=== PATIENT | female | born 1930 | race Caucasian/White ===

== ENCOUNTER → 2018-03-19 | Outpatient (CLI) | payer OTHER, BC | LOC: FCPNEURO 21:30 | PROVIDERS: ATTEND Psychiatry & Neurology Sleep Medicine | DX: G47.34 Idiopathic sleep related nonobstructive alveolar hypoventilation (principal); G47.61 Periodic limb movement disorder ==

== ENCOUNTER → 2018-09-20 | Outpatient (CLI) | payer BC, OTHER | LOC: BMCIMAGING 14:27 | PROVIDERS: ATTEND Internal Medicine Rheumatology | DX: M81.0 Age-related osteoporosis without current pathological fracture (principal); M48.56XA Collapsed vertebra, not elsewhere classified, lumbar region, initial encounter for fracture; Z78.0 Asymptomatic menopausal state; Z79.83 Long term (current) use of bisphosphonates; Z79.52 Long term (current) use of systemic steroids ==

== ENCOUNTER 2018-10-28 05:15 | Day surgery (SDC) | payer OTHER ==
--- NOTE | 2018-10-27 16:13 | GHP ---
[f rep st] PREOP HISTORY AND PHYSICAL DATE OF ADMISSION: 10/28/2018 DATE OF SURGERY: 10/28/2018. CHIEF COMPLAINT: Umbilical hernia. HISTORY OF PRESENT ILLNESS: An 88-year-old woman with an umbilical hernia for several years. It was not bothersome to her and was not changing in size until about 1 week ago, when the hernia became si gnificantly larger. She describes it to be the size of a doorknob. It was extremely painful and tur zhang red. She luckily had a physician who lives in her neighborhood come over, who was able to fully reduce this incarcerated umbilical hernia and applied a pressure dressing of a yarn ball followed by an abdominal binder. Since the time of the incarceration, she does not have any recurrent symptoms o f pain, swelling, redness. She does not have any change in her bowel movement. She continues to pas s gas. No fevers or chills. Regular appetite. No nausea or vomiting. PAST MEDICAL HISTORY: Asthma, lifelong; polymyalgia rheumatica; nocturnal hypoxia requiring 2 L oxyg en at night. PAST SURGICAL HISTORY: Cardiac ablation for arrhythmia. Otherwise, none. ALLERGIES: No known drug allergies. FAMILY MEDICAL HISTORY: No significant family medical. SOCIAL HISTORY: She moved to [place] approximately 1 year ago to be near family after her 's . She denies tobacco, alcohol, or recreational drug use. She is retired. REVIEW OF SYSTEMS: A 10-point review of systems is negative aside from the HPI. PHYSICAL EXAMINATION: GENERAL: A well-developed, well-nourished, elderly woman in no acute distress . HEENT: Normocephalic, atraumatic. No hearing deficits. Pupils equal and round. No scleral icte besise. Mucous membranes are moist. NECK: Trachea midline. RESPIRATORY: No increased work of breath ing. Clear to auscultation bilaterally. CARDIOVASCULAR: Regular rate and rhythm. No peripheral ed taty. SKIN: Warm and dry. No rash. No surgical incisions. ABDOMEN: Bowel sounds present. ABDOME N: Soft, nondistended, nontender to palpation. She does have a quite sizable umbilical hernia, appr oximately 3 cm opening at the fascia. At this moment, the hernia is fully reducible without overlyin g skin changes. PSYCH: Mood and affect normal. NEURO: Grossly intact. IMPRESSION AND PLAN: This is an 88-year-old woman with recently incarcerated umbilical hernia, curre ntly reducible. I have recommended urgent open umbilical hernia repair with or without mesh. We dis cussed risks of surgery including, but not limited to heart attack, stroke, blood clots or . We discussed risk of infection, bleeding, damage to surrounding structures, need for additional procedu res or recurrence. She understands the risks and would like to proceed. She is currently on low dos e of prednisone of an extended taper for polymyalgia rheumatica. She does not take any blood thinner s. She has no antibiotic allergies. Anticipate this to be an outpatient procedure. The patient marifer l be additionally evaluated by Dr. Nisha Musa. /[id number]/MODL
[2018-10-28] MEDS ORDERED: ceFAZolin 2 GM/DEXTROSE 100 ML IV ONE (05:57)
[2018-10-28] MEDS ORDERED: LR 1,000 ML IV ONE (06:02)
[2018-10-28] MEDS ORDERED: BUPIVACAINE 0.5% 30 ML SDV ONE (06:40)
[2018-10-28 06:48] LABS: PLATELET COUNT 290 10^3/uL (150-400)
--- NOTE | 2018-10-28 07:03 | PDHPUP ---
History & Physical Update H&P update statement: This history and physical update is based on an assessment of the patient which was completed after admission or registration (within 24 hours), but prior to the surgery/procedure. H&P update: H&P reviewed & patient examined, no change in patient's condition since H&P completed
[2018-10-28] MEDS ORDERED: MIDAZOLAM 2 MG/2 ML VIAL IVP ONE (07:06)
--- NOTE | 2018-10-28 07:07 | PDANEPAE ---
ANE Past Medical History - Cardiovascular History Hx Hypertension: No Hx Arrhythmias: Yes Hx Chest Pain: No Hx Coronary Artery / Peripheral Vascular Disease: No Hx CHF / Valvular Disease: No Hx Palpitations: No Cardiovascular History Comment: Afib with ablation 15yrs ago. intermittent palpitations - Pulmonary History Hx COPD: No Hx Asthma/Reactive Airway Disease: Yes Hx Recent Upper Respiratory Infection: Yes Hx Oxygen in Use at Home: Yes O2 in Use at Home (L/minute): 2.L at noc Hx Sleep Apnea: No Sleep Apnea Screening Result - Last Documented: Negative Pulmonary History Comment: nocturnal hypoxia - Neurologic History Hx Cerebrovascular Accident: No Hx Seizures: No Hx Dementia: No - Endocrine History Hx Diabetes: No - Renal History Hx Renal Disorders: No - Liver History Hx Hepatic Disorders: No - Neurological & Psychiatric Hx Hx Neurological and Psychiatric Disorders: Yes Neurological / Psychiatric History Comment: carpal tunnel. depression/anxiety - Cancer History Hx Cancer: No - Congenital Disorder History Hx Congenital Disorders: No - GI History Hx Gastrointestinal Disorders: Yes Gastrointestinal History Comment: hiatel hernia - Other Health History Other Health History: [place] DEE-NI'. very sensitive skin. bruises easily - Chronic Pain History Chronic Pain: Yes (generilesed) - Surgical History Prior Surgeries: none in last 5 yrs. bilat cataract surgery ANE Review of Systems Review of Systems: - Exercise capacity METS (RN): 3 METS ANE Patient History - Allergies Allergies/Adverse Reactions: No Known Allergies Allergy (Verified 10/27/18 15:34) - Home Medications Home Medications: Advair 500/50 (*) 10/27/18 [Last Taken 10/27/18 09:00] Albuterol 10/27/18 [Last Taken 10/24/18] Calcium 10/27/18 [Last Taken 10/27/18 09:00] Cholecalciferol (Vitamin D3) 10/27/18 [Last Taken 10/27/18 09:00] Claritin 10/27/18 [Last Taken 10/28/18 05:00] Fluoxetine HCl 10/27/18 [Last Taken 10/28/18 05:00] Fluticasone Nasal 10/27/18 [Last Taken Unknown] Prednisone 10/27/18 [Last Taken 10/28/18 05:00] Proair Hfa 10/27/18 [Last Taken 10/25/18] Singulair 10/27/18 [Last Taken 10/28/18 05:00] Spiriva Inhaler (RX) 10/27/18 [Last Taken Unknown] Spironolactone 10/27/18 [Last Taken 10/27/18 09:00] Temazepam 10/27/18 [Last Taken 10/27/18 22:00] - NPO status NPO Since - Liquids (Date): 10/27/18 NPO Since - Liquids (Time): 19:30 NPO Since - Solids (Date): 10/27/18 NPO Since - Solids (Time): 19:30 - Smoking Hx Smoking Status: Former smoker - Family Anes Hx Family Hx Anesthesia Complications: none ANE Labs/Vital Signs - Labs Result Diagrams: 10/28/18 06:30 - Vital Signs Blood Pressure: 139/73 Heart Rate: 79 Respiratory Rate: 21 O2 Sat (%): 92 Height: 149.86 cm Weight: 58.513 kg ANE Physical Exam - Airway Neck exam: FROM Mallampati Score: Class 2 Mouth exam: normal dental/mouth exam - Pulmonary Pulmonary: no respiratory distress - Cardiovascular Cardiovascular: regular rate and rhythym - ASA Status ASA Status: II ANE Anesthesia Plan Anesthesia Plan: general endotracheal anesthesia, GA w LMA
[2018-10-28] MEDS ORDERED: fentaNYL 100 MCG/2 ML INJ ONE (07:10)
[2018-10-28] MEDS ORDERED: PROPOFOL 200 MG/20 ML VIAL ONE (07:10)
[2018-10-28] MEDS ORDERED: DEXAMETHASONE 4 MG/ML VIAL ONE (07:10)
[2018-10-28] MEDS ORDERED: ONDANSETRON 4 MG/2 ML VIAL ONE (07:11)
[2018-10-28] MEDS ORDERED: LIDOCAINE 2% 100 MG/5 ML SYR ONE (07:11)
[2018-10-28] MEDS ORDERED: ONDANSETRON 4 MG/2 ML VIAL IVP PRN (08:02)
[2018-10-28] MEDS ORDERED: ALBUTEROL 3 ML DEYVIAL IH PRN (08:02)
[2018-10-28] MEDS ORDERED: HYDROCODONE/APAP 5/325 TAB PO PRN (08:02)
[2018-10-28] MEDS ORDERED: fentaNYL 100 MCG/2 ML INJ IVP PRN (08:02)
[2018-10-28] MEDS ORDERED: ACETAMINOPHEN 500 MG TAB PO PRN (08:02)
[2018-10-28] MEDS ORDERED: NALOXONE HCL 0.4 MG/ML INJ IVP PRN (08:02)
--- NOTE | 2018-10-28 08:24 | POSTOPPROG ---
Post Op Note Date of Operation: 10/28/18 Surgeon: Nisha Musa Anesthesiologist: Shira Anesthesia: LMA Pre-op Diagnosis: umbilical hernia Post-op Diagnosis: umbilical hernia Indication: incarceration of umbilical hernia Procedure: umbilical hernia repair with mesh Findings: incarcerated omentum Inf/Abcess present in the surg proc area at time of surgery?: No Depth: Deep Incisional (Fascial) EBL: Minimal Complications: none Clean Closure Performed: N/A
--- NOTE | 2018-10-28 08:25 | POSTANESTH ---
Post Anesthetic Evaluation Cardiovascular Status: Similar to Pre-Op Cond Respiratory Status: Similar to Pre-op Cond. Level of Consciousness/Mental Status: Mildly Sleepy, Arousable Pain Control: Adequate, Prn Tx Ordered Nausea/Vomiting Control: Adequate, Prn Tx Ordered Complications Possibly Related to Anesthesia: None Noted
--- NOTE | 2018-10-28 08:45 | GOP ---
[f rep st] OPERATIVE REPORT DATE OF OPERATION: 10/28/2018 SURGEON: Nisha Musa MD ANESTHESIOLOGIST: Jaswinder Silva MD PREOPERATIVE DIAGNOSIS: Umbilical hernia. POSTOPERATIVE DIAGNOSIS: Umbilical hernia. PROCEDURE PERFORMED: Umbilical hernia repair with mesh. FINDINGS: Incarcerated omentum. SPECIMENS: None. INDICATIONS: Anabell Vital is an 88-year-old woman who has had a known longstanding umbilical hernia. It was not bothersome until recently. A large amount protruded and became extremely painful. It w as able to be reduced almost all the way in the office, and a pressure dressing was applied. She pre sents for repair. DESCRIPTION OF PROCEDURE: Patient was brought into the operating room, placed supine on the table. General anesthesia was administered. Her abdomen was prepped and draped in the usual sterile fashion . I infiltrated all sites with 0.5% Marcaine prior to making incisions. I made a curvilinear incisi on beneath the umbilicus. I dissected down through the skin and immediately encountered the hernia s ac. I carefully dissected this away from the umbilical skin and came around the umbilical stalk. I opened the hernia sac and reduced all the omentum into the abdominal cavity. I excised the hernia sa c. I closed the fascia with 0 PDS. I placed a piece of onlay ProGrip mesh with 0 Surgilon. I then created a ernst-umbilicus with 2-0 Vicryl. I closed skin with 2-0 Vicryl followed by 4-0 Monocryl, Mas tisol, Steri-Strips. A sterile dressing and cotton ball were applied. She was awakened in the opera ting room, extubated, transferred to PACU in stable condition. /[id number]/MODL
[2018-10-28 10:06] VITALS: BP 115/67
--- NOTE | 2018-10-28 12:30 | CPEKG ---
Test Reason : OPEN Blood Pressure : / mmHG Vent. Rate : 076 BPM Atrial Rate : 077 BPM P-R Int : 148 ms QRS Dur : 088 ms QT Int : 399 ms P-R-T Axes : -11 011 074 degrees QTc Int : 449 ms Sinus rhythm Atrial premature complex Consider old anterior infarct ST depression lateral leads, consider lateral ischemia. Confirmed by Richard Estrada ([id number]) on 10/28/2018 12:29:32 PM Referred By: Nisha Musa Confirmed By:Richard Estrada
== END 2018-10-28 09:55 | disposition home or self-care (01) ==
LOC: FSGY 05:15
PROVIDERS: ATTEND Surgery
PROC: 0WUF0JZ Supplement Abdominal Wall with Synthetic Substitute, Open Approach (ICD-10-PCS; principal; 2018-10-28 07:15)
DX: K42.0 Umbilical hernia with obstruction, without gangrene (principal); J45.909 Unspecified asthma, uncomplicated; M35.3 Polymyalgia rheumatica
CPT/HCPCS: C1781; J0690; J1100; J2001; J2250; J2405; J2704; J3010